=== PATIENT | female | born 1985 | race African-American/Black ===

== ENCOUNTER 2017-05-20 19:46 | Emergency (ER) | payer SELFPAY ==
[~2017-05-20] VITALS: Ht 157.5 cm; Wt 40.0 kg
[2017-05-21 00:10] VITALS: BP 122/84
== END 2017-05-21 00:10 | disposition home or self-care (01) ==
LOC: ER 19:46
DX: L84 Corns and callosities (principal); L60.0 Ingrowing nail; F17.210 Nicotine dependence, cigarettes, uncomplicated
CPT/HCPCS: 99282